=== PATIENT | male | born 1960 | race African-American/Black ===

== ENCOUNTER 2024-10-04 19:18 | Inpatient (IN) | payer MEDICARE, OTHER ==
[2024-10-04 20:51] LABS: #Basophils 0.04 10x3/uL (0.0-0.2); #Eosinophils 0.17 10x3/uL (0.0-0.5); #Monocytes 0.86 10x3/uL (0.0-1.1); #Neutrophils 5.44 10x3/uL (1.5-8.4); %Basophils 0.5 % (0.0-2.0); %Eosinophils 2.1 % (0.0-6.0); %Lymphocytes 19.9 % (18.0-47.0); %Monocytes 10.5 % (0.0-10.0); %Neutrophils 66.1 % (40.0-75.0); Hematocrit 40.1 % (38.8-50.0); Hemoglobin 13.1 g/dL (13.5-17.5); Mean Corpuscular HGB CONC 32.7 g/dL (32.0-36.0); Mean Corpuscular Hemoglobin 29.3 pg (27.0-33.0); Mean Corpuscular Volume 89.7 fL (81.2-95.1); Platelet Count 264 10x3/uL (150-450); RBC Distribution Width 12.2 % (11.5-14.5); Red Blood Cell (RBC) Count 4.47 10x6/uL (4.32-5.72); White Blood Cell (WBC) Count 8.2 10x3/uL (3.5-10.5)
[2024-10-04 21:00] LABS: PTT 27.1 sec (22.0-33.0); Prothrombin Time 11.2 sec (9.5-12.1)
[2024-10-04 21:03] LABS: ALT (SGPT) 11 U/L (8-55); AST (SGOT) 12 U/L (5-34); Albumin 3.5 g/dL (3.4-4.8); Alkaline Phosphatase 57 U/L (40-110); Anion Gap 12 mmol/L (10-20); BUN (Urea Nitrogen) 18 mg/dL (8.4-25.7); Bilirubin, Total 0.9 mg/dL (0.2-1.2); Calc. Creatinine Clearance 0 mL/min (70-130); Calcium 8.9 mg/dL (7.8-10.44); Carbon Dioxide 22 mmol/L (23-31); Chloride 108 mmol/L (98-107); Estimated GFR 63; Globulin 3.3 g/dL (2.4-3.5); Glucose 101 mg/dL (80-115); Lipase 35 U/L (8-78); Magnesium 1.9 mg/dL (1.6-2.6); Protein, Total 6.8 g/dL (5.8-8.1); Sodium 138 mmol/L (136-145)
[2024-10-04 21:09] LABS: Troponin I Less than 0.010 ng/mL (< 0.028)
[2024-10-04] MEDS ORDERED: Aspirin Chewable 81 MG TAB ONE (21:23)
[2024-10-04] MEDS ORDERED: Morphine 4 MG/ML VIAL ONE (21:23)
[2024-10-04] MEDS ORDERED: fentaNYL 50 mcg/mL 1 mL Vial ONE (22:06)
[2024-10-04] MEDS ORDERED: Acetaminophen 650 MG Suppository PR PRN (22:33)
[2024-10-04] MEDS ORDERED: traZODone HCl 50 MG TAB PO PRN (22:38)
[2024-10-04] MEDS ORDERED: Ondansetron PF 4 MG/2 ML Vial ONE (23:28)
[2024-10-05 00:02] VITALS: BMI 28.0
[2024-10-05 02:23] LABS: #Basophils 0.02 10x3/uL (0.0-0.2); #Eosinophils 0.03 10x3/uL (0.0-0.5); #Monocytes 0.65 10x3/uL (0.0-1.1); %Basophils 0.2 % (0.0-2.0); %Eosinophils 0.4 % (0.0-6.0); %Lymphocytes 12.3 % (18.0-47.0); Hematocrit 39.7 % (38.8-50.0); Hemoglobin 13.3 g/dL (13.5-17.5); Mean Corpuscular HGB CONC 33.5 g/dL (32.0-36.0); Mean Corpuscular Hemoglobin 29.6 pg (27.0-33.0); Mean Corpuscular Volume 88.4 fL (81.2-95.1); Mean Platelet Volume 8.6 fL (7.4-10.4); Platelet Count 255 10x3/uL (150-450); RBC Distribution Width 12.3 % (11.5-14.5); Red Blood Cell (RBC) Count 4.49 10x6/uL (4.32-5.72); White Blood Cell (WBC) Count 8.1 10x3/uL (3.5-10.5)
[2024-10-05 02:41] LABS: Troponin I Less than 0.010 ng/mL (< 0.028)
[2024-10-05 02:53] LABS: Anion Gap 12 mmol/L (10-20); BUN (Urea Nitrogen) 18 mg/dL (8.4-25.7); Calc. Creatinine Clearance 69 mL/min (70-130); Calcium 8.8 mg/dL (7.8-10.44); Carbon Dioxide 22 mmol/L (23-31); Chloride 107 mmol/L (98-107); Estimated GFR 67; Glucose 158 mg/dL (80-115); Potassium 4.2 mmol/L (3.5-5.1); Sodium 137 mmol/L (136-145)
[2024-10-05] MEDS: FLU (Fluarix Triv) TS24-25(6MOS UP)/PF 45 MCG/0.5 ML Syringe IM ONE (03:19)
[2024-10-05 06:45] LABS: Troponin I Less than 0.010 ng/mL (< 0.028)
[2024-10-05] MEDS: Enoxaparin 40 MG (0.4 mL) SYRINGE SC SCH (08:30)
[2024-10-05] MEDS: Acetaminophen 325 MG TAB PO PRN (08:31)
[2024-10-05] MEDS: Ranolazine ER 500 MG TAB PO SCH (08:31)
[2024-10-05] MEDS: cloNIDine 0.1 MG TAB PO SCH (08:34)
[2024-10-05] MEDS: Aspirin Chewable 81 MG TAB PO SCH (08:34)
[2024-10-05] MEDS: Isosorbide Mononitrate 60 MG ER.TAB PO SCH (08:34)
[2024-10-05] MEDS: Carvedilol 25 MG TAB PO SCH (08:34)
[2024-10-05] MEDS: Pantoprazole DR 40 MG TAB PO SCH (12:19)
[2024-10-05] MEDS: HYDROcodone/Acetaminophen 5/325 mg Tablet PO SCH (17:39)
[2024-10-05] MEDS: Atorvastatin Calcium 40 MG TAB PO SCH (21:27)
[2024-10-06 04:50] LABS: #Basophils 0.05 10x3/uL (0.0-0.2); #Eosinophils 0.13 10x3/uL (0.0-0.5); #Monocytes 1.11 10x3/uL (0.0-1.1); #Neutrophils 6.44 10x3/uL (1.5-8.4); %Basophils 0.6 % (0.0-2.0); %Eosinophils 1.4 % (0.0-6.0); %Lymphocytes 13.8 % (18.0-47.0); %Monocytes 12.3 % (0.0-10.0); Hematocrit 36.7 % (38.8-50.0); Hemoglobin 12.7 g/dL (13.5-17.5); Mean Corpuscular HGB CONC 34.6 g/dL (32.0-36.0); Mean Corpuscular Hemoglobin 31.1 pg (27.0-33.0); Mean Platelet Volume 9.2 fL (7.4-10.4); Platelet Count 256 10x3/uL (150-450); RBC Distribution Width 12.4 % (11.5-14.5); Red Blood Cell (RBC) Count 4.08 10x6/uL (4.32-5.72); White Blood Cell (WBC) Count 9.1 10x3/uL (3.5-10.5)
[2024-10-06 04:55] LABS: Anion Gap 10 mmol/L (10-20); BUN (Urea Nitrogen) 22 mg/dL (8.4-25.7); Calc. Creatinine Clearance 60 mL/min (70-130); Calcium 8.5 mg/dL (7.8-10.44); Carbon Dioxide 22 mmol/L (23-31); Chloride 108 mmol/L (98-107); Estimated GFR 56; Glucose 112 mg/dL (80-115); Potassium 4.3 mmol/L (3.5-5.1); Sodium 136 mmol/L (136-145)
[2024-10-06] MEDS: Nitroglycerin 0.4 MG TAB (25 Tab Bottle) SL PRN (08:31)
[2024-10-06] MEDS: Pantoprazole DR 40 MG TAB PO SCH (08:50)
[2024-10-06] MEDS ORDERED: Lidocaine 1% (PF) 30 ML VIAL ONE (09:30)
[2024-10-06] MEDS ORDERED: Midazolam HCl 2 mg/2 ml Vial ONE ×2 (09:31→11:17)
[2024-10-06] MEDS ORDERED: fentaNYL 50 mcg/mL 1 mL Vial ONE ×2 (09:31→11:17)
[2024-10-06] MEDS ORDERED: Heparin 10,000 UNITS/ 10 ML VIAL ONE (09:31)
[2024-10-06] MEDS ORDERED: Morphine 2 MG/ML VIAL SLOW IVP PRN (09:33)
[2024-10-06] MEDS ORDERED: Morphine 4 MG/ML VIAL SLOW IVP PRN (09:34)
[2024-10-06] MEDS ORDERED: Mag-Al 1200 mg/1200 mg/30 ML UDCUP PO PRN (09:35)
[2024-10-06] MEDS: Sodium Chloride 0.9% 1,000 ML IV SCH ×2 (09:58→17:03)
[2024-10-06] MEDS: Ondansetron PF 4 MG/2 ML Vial IVP PRN (09:58)
[2024-10-06] MEDS ORDERED: TICAGRELOR 90 MG TABLET ONE (11:04)
[2024-10-06] MEDS ORDERED: Nitroglycerin 50 MG/250 ML BOT 250 ML ONE (11:20)
[2024-10-06] MEDS ORDERED: Protamine Sulfate 50 MG/5 ML VIAL ONE (11:39)
[2024-10-06] MEDS ORDERED: Iopamidol 300 61% 100 ML VIAL FS ONE (13:33)
[2024-10-06] MEDS: TICAGRELOR 90 MG TABLET PO SCH (20:52)
[2024-10-07 04:41] LABS: #Basophils 0.05 10x3/uL (0.0-0.2); #Eosinophils 0.11 10x3/uL (0.0-0.5); #Monocytes 1.05 10x3/uL (0.0-1.1); #Neutrophils 6.59 10x3/uL (1.5-8.4); %Basophils 0.6 % (0.0-2.0); %Eosinophils 1.2 % (0.0-6.0); %Lymphocytes 10.9 % (18.0-47.0); %Monocytes 11.8 % (0.0-10.0); %Neutrophils 74.2 % (40.0-75.0); Hematocrit 36.1 % (38.8-50.0); Hemoglobin 12.4 g/dL (13.5-17.5); Mean Corpuscular HGB CONC 34.3 g/dL (32.0-36.0); Mean Corpuscular Hemoglobin 30.7 pg (27.0-33.0); Mean Corpuscular Volume 89.4 fL (81.2-95.1); Mean Platelet Volume 9.2 fL (7.4-10.4); Platelet Count 251 10x3/uL (150-450); RBC Distribution Width 12.4 % (11.5-14.5); Red Blood Cell (RBC) Count 4.04 10x6/uL (4.32-5.72); White Blood Cell (WBC) Count 8.9 10x3/uL (3.5-10.5)
[2024-10-07 04:54] LABS: ALT (SGPT) 61 U/L (8-55); AST (SGOT) 21 U/L (5-34); Alkaline Phosphatase 78 U/L (40-110); Anion Gap 12 mmol/L (10-20); BUN (Urea Nitrogen) 17 mg/dL (8.4-25.7); Bilirubin, Total 1.1 mg/dL (0.2-1.2); Calc. Creatinine Clearance 67 mL/min (70-130); Calcium 8.4 mg/dL (7.8-10.44); Carbon Dioxide 19 mmol/L (23-31); Chloride 109 mmol/L (98-107); Estimated GFR 64; Globulin 2.9 g/dL (2.4-3.5); Glucose 92 mg/dL (80-115); Potassium 4.3 mmol/L (3.5-5.1); Protein, Total 5.9 g/dL (5.8-8.1); Sodium 136 mmol/L (136-145)
[2024-10-07] MEDS: Dextrose 5 %-0.45 % NaCl 1,000 ML IV SCH (17:23)
[2024-10-08 04:17] LABS: #Basophils 0.04 10x3/uL (0.0-0.2); #Eosinophils 0.08 10x3/uL (0.0-0.5); #Monocytes 1.01 10x3/uL (0.0-1.1); #Neutrophils 5.56 10x3/uL (1.5-8.4); %Basophils 0.5 % (0.0-2.0); %Lymphocytes 13.5 % (18.0-47.0); %Monocytes 12.8 % (0.0-10.0); %Neutrophils 70.3 % (40.0-75.0); Hematocrit 37.9 % (38.8-50.0); Hemoglobin 12.7 g/dL (13.5-17.5); Mean Corpuscular HGB CONC 33.5 g/dL (32.0-36.0); Mean Corpuscular Hemoglobin 29.6 pg (27.0-33.0); Mean Corpuscular Volume 88.3 fL (81.2-95.1); Mean Platelet Volume 8.8 fL (7.4-10.4); Platelet Count 230 10x3/uL (150-450); RBC Distribution Width 12.2 % (11.5-14.5); Red Blood Cell (RBC) Count 4.29 10x6/uL (4.32-5.72); White Blood Cell (WBC) Count 7.9 10x3/uL (3.5-10.5)
[2024-10-08 04:31] LABS: ALT (SGPT) 41 U/L (8-55); AST (SGOT) 14 U/L (5-34); Albumin 2.9 g/dL (3.4-4.8); Alkaline Phosphatase 72 U/L (40-110); Anion Gap 12 mmol/L (10-20); BUN (Urea Nitrogen) 13 mg/dL (8.4-25.7); Bilirubin, Total 1.2 mg/dL (0.2-1.2); Calc. Creatinine Clearance 64 mL/min (70-130); Calcium 8.5 mg/dL (7.8-10.44); Carbon Dioxide 19 mmol/L (23-31); Chloride 108 mmol/L (98-107); Estimated GFR 61; Glucose 103 mg/dL (80-115); Protein, Total 5.9 g/dL (5.8-8.1); Sodium 135 mmol/L (136-145)
[2024-10-08 12:49] VITALS: BP 124/62; TEMP 97.9
== END 2024-10-08 15:56 | disposition home or self-care (01) | DRG 322 ==
LOC: SUATTDRO 19:18 → CSHERS 19:18 → CSHTELE 22:36 → OBSVTOIN 22:37
PROVIDERS: ADMIT Family Medicine; ATTEND Internal Medicine
PROC: 027034Z Dilation of Coronary Artery, One Artery with Drug-eluting Intraluminal Device, Percutaneous Approach (ICD-10-PCS; principal; 2024-10-06)
PROC: 4A023N7 Measurement of Cardiac Sampling and Pressure, Left Heart, Percutaneous Approach (ICD-10-PCS; 2024-10-06)
PROC: B211YZZ Fluoroscopy of Multiple Coronary Arteries using Other Contrast (ICD-10-PCS; 2024-10-06)
PROC: B310YZZ Fluoroscopy of Thoracic Aorta using Other Contrast (ICD-10-PCS; 2024-10-06)
PROC: B212YZZ Fluoroscopy of Single Coronary Artery Bypass Graft using Other Contrast (ICD-10-PCS; 2024-10-06)
PROC: B218YZZ Fluoroscopy of Left Internal Mammary Bypass Graft using Other Contrast (ICD-10-PCS; 2024-10-06)
PROC: B215YZZ Fluoroscopy of Left Heart using Other Contrast (ICD-10-PCS; 2024-10-06)
DX: I25.110 Atherosclerotic heart disease of native coronary artery with unstable angina pectoris (principal); I13.0 Hypertensive heart and chronic kidney disease with heart failure and stage 1 through stage 4 chronic kidney disease, or unspecified chronic kidney disease; I45.2 Bifascicular block; N18.9 Chronic kidney disease, unspecified; E78.5 Hyperlipidemia, unspecified; I50.9 Heart failure, unspecified; K21.9 Gastro-esophageal reflux disease without esophagitis; G89.29 Other chronic pain; M19.90 Unspecified osteoarthritis, unspecified site; Z90.49 Acquired absence of other specified parts of digestive tract; Z86.73 Personal history of transient ischemic attack (TIA), and cerebral infarction without residual deficits; I25.2 Old myocardial infarction; Z95.1 Presence of aortocoronary bypass graft
CPT/HCPCS: 36415; 71045; 80048; 80053; 83690; 83735; 83880; 84484; 85025; 85347; 85610; 85730; 92928; 92978; 92979; 93005; 93010; 93306; 93459; 96374; 96375; 99152; 99153; C1725; C1753; C1760; C1769; C1874; C1887; C9600; J1644; J1650; J2250; J2272; J2405; J2720; J3010; J7030; J7042; Q9967